=== PATIENT | male | born 1945 | race Caucasian/White ===

== ENCOUNTER 2019-08-07 09:40 | Inpatient (IN) | payer OTHER ==
[~2019-08-07] VITALS: Ht 180.3 cm; Wt 117.0 kg
[~2019-08-07 09:40] MED LIST: ASPI-404 PO; ATOR40TA52 PO; FAM20T PO; METF-371 PO; PIO30T PO
[2019-08-07] MEDS ORDERED: ADENOSINE 6 MG/2 ML INJ IV ONE (10:45)
[2019-08-07 11:06] LABS: Basophils # (auto) 0.1 uL; Eosinophils # (auto) 0.4 uL; Eosinophils % (auto) 4.5 % (0.0-7.0); Hemoglobin 13.7 g/dL (13.5-17.5); Lymphocytes # (auto) 1.7 uL; Lymphocytes % (auto) 18.9 % (10.0-50.0); Mean Corpuscular Hemoglobin 30.2 pg (28.0-32.0); Mean Corpuscular Hgb Conc. 33.5 g/dL (32.0-36.0); Mean Corpuscular Volume 90.3 fL (80.0-100.0); Monocytes # (auto) 0.9 uL; Monocytes % (auto) 10.6 % (0.0-12.0); Neutrophils # (auto) 5.7 uL; Platelet Count (auto) 286 10^3/uL (140-450); Red Blood Cells 4.54 10^6/uL (4.5-5.90); Red Cell Distribution Width 15.4 % (11.8-14.3); White Blood Cell 8.8 10^3/uL (4.4-10.8)
[2019-08-07 11:20] LABS: Alanine Aminotransferase 24 U/L (16-61); Albumin 3.7 g/dL (3.4-5.0); Anion Gap 8 (5-15); Aspartate Aminotransferase 20 U/L (15-37); BUN/Creatinine Ratio 14.1; Blood Urea Nitrogen 19 mg/dL (7-18); Calcium 9.8 mg/dL (8.5-10.1); Carbon Dioxide 25 mmol/L (21-32); Chloride 104 mmol/L (98-107); GFR African American 67 mL/min; GFR Non-African American 55 mL/min; Glucose 187 mg/dL (74-106); Magnesium 1.8 mg/dL (1.6-2.6); Potassium 4.5 mmol/L (3.5-5.1); Sodium 137 mmol/L (136-145)
[2019-08-07 11:25] LABS: Alkaline Phosphatase 109 U/L (45-117); Bilirubin, Total 0.7 mg/dL (0.2-1.0); Total Protein 7.9 g/dL (6.4-8.2)
[2019-08-07] MEDS ORDERED: METO25TA62 PO (13:51)
[2019-08-07] MEDS ORDERED: APIX5TAB PO (13:52)
[2019-08-07] MEDS ORDERED: NITROGLYCERIN 0.4 MG SL TAB SL PRN (14:30)
[2019-08-07] MEDS ORDERED: MORPHINE SULF INJ 2 MG/ML SYRINGE 1ML IV PRN ×2 (14:30)
[2019-08-07] MEDS ORDERED: ONDANSETRON HCL 4 MG/2 ML VIAL IV PRN (14:30)
[2019-08-07] MEDS ORDERED: HYDROcodone-ACET 5/325MG TAB PO PRN (14:30)
[2019-08-07] MEDS ORDERED: ACETAMINOPHEN 325 MG TAB PO PRN (14:30)
[2019-08-07 20:22] LABS: Urine Bacteria NONE SEEN /hpf (None Seen); Urine Blood Negative /uL (Negative); Urine Specific Gravity 1.011 (1.001-1.035); Urine WBC 1 /hpf (0 - 3)
--- NOTE | 2019-08-07 20:32 | NUR ---
Telemetry admit from ER DIANNE ROJAS admitted to Telemetry unit after SBAR received. Patient oriented to VAMSI ANDERSON RN primary RN, unit, room, bed, and unit policies regarding patient care and visiting hours. Patient now on continuous telemetry monitoring, tele box # [id number] and telemetry reading on arrival to unit is A-flutter 108 bpm. Patient weighed by bedscale and encouraged to call if they need something. All questions and concerns addressed, patient verbalized understanding. Patient is A/O x4, no complaints of pain, distress, or SOB, he is on RA, ambulatory. Call light is within reach, side rails up x2, bed is in lowest position.
[2019-08-07] MEDS: ENOXAPARIN SOD 100 MG/1 ML SYRINGE SC SCH (21:38)
[2019-08-07 22:00] VITALS: BP 133/76
[2019-08-07] MEDS: METOPROLOL TARTRATE 25 MG TAB PO SCH (22:00)
--- NOTE | 2019-08-07 23:05 | NUR ---
Wound picture taken of left ankle.
[2019-08-08] MEDS ORDERED: PNEUMOCOCCAL VACC POLYS 25 MCG/0.5 ML VIAL IM ONE (00:15)
[2019-08-08 05:00] VITALS: BP 136/80
[2019-08-08 06:08] LABS: Basophils # (auto) 0.1 uL; Basophils % (auto) 1.1 % (0.0-2.0); Eosinophils # (auto) 0.3 uL; Eosinophils % (auto) 4.6 % (0.0-7.0); Hematocrit 36.9 % (41.0-53.0); Hemoglobin 12.6 g/dL (13.5-17.5); Lymphocytes # (auto) 1.6 uL; Lymphocytes % (auto) 24.1 % (10.0-50.0); Mean Corpuscular Hemoglobin 30.7 pg (28.0-32.0); Mean Corpuscular Hgb Conc. 34.1 g/dL (32.0-36.0); Mean Corpuscular Volume 90.1 fL (80.0-100.0); Monocytes # (auto) 0.8 uL; Monocytes % (auto) 11.3 % (0.0-12.0); Neutrophils # (auto) 3.9 uL; Neutrophils % (auto) 58.9 % (37.0-80.0); Nucleated Red Blood Cells % 0.1 %; Platelet Count (auto) 240 10^3/uL (140-450); Red Cell Distribution Width 15.1 % (11.8-14.3); White Blood Cell 6.6 10^3/uL (4.4-10.8)
[2019-08-08 06:33] LABS: Albumin 3.3 g/dL (3.4-5.0); BUN/Creatinine Ratio 15.2; Calcium 9.4 mg/dL (8.5-10.1); Magnesium 1.9 mg/dL (1.6-2.6); Potassium 4.4 mmol/L (3.5-5.1); Total Protein 6.9 g/dL (6.4-8.2)
[2019-08-08 06:35] LABS: Bilirubin, Total 0.5 mg/dL (0.2-1.0)
[2019-08-08 08:21] VITALS: BP 121/72
[2019-08-08] MEDS: METOPROLOL TARTRATE 25 MG TAB PO SCH (09:13)
[2019-08-08] MEDS: ENOXAPARIN SOD 100 MG/1 ML SYRINGE SC SCH (09:14)
--- NOTE | 2019-08-08 11:00 | NUR ---
WOUND CARE NOTE: IN TO SEE PATIENT AT THIS TIME PER WOUND CARE CONSULT REQUEST. PATIENT ADMITTED TO [facility] WITH SVT, A FLUTTER. CURRENT GUSTAVO SCORE IS 20. PATIENT IS FULLY AMBULATORY. HE HAS HISTORY WITH DVT, VARICOSE VEINS, AND VENOUS STASIS ULCERS. THERE IS HEMOSIDERIN STAIN NOTED TO BILATERAL LOWER EXTREMITIES. HE HAS AN INTACT VENOUS STASIS ULCER TO THE LEFT MEDIAL ANKLE. WOUND IS NOT OPEN OR DRAINING. WOUND IS SCABBED CLOSED, WITH BROWN ESCHAR SCAB. PERIWOUND IS BRIGHT RED. LEFT OPEN TO AIR. PATIENT EDUCATED IN WOUND CARE AND THE NEED FOR PATIENT TO WEAR HIS PRESCRIBED COMPRESSION SOCKS. PATIENT VERBALIZED UNDERSTANDING. SKIN/WOUND CARE PLAN IMPLEMENTED. PATIENT WOULD BENEFIT FROM ELEVATION OF BLE FOR EDEMA CONTROL. PATIENT WILL BE DISCHARGING THIS PM. Addendum: 08/08/19 at 1729 by Pam Scruggs RN Amended: Links added.
--- NOTE | 2019-08-08 12:57 | NUR ---
DR. ZAPATA IN TO SEE PT. PT IN AGREEMENT WITH PLAN OF CARE.
--- NOTE | 2019-08-08 12:58 | NUR ---
MD AWARE OF HEART RHYTHM AND RATE.
[2019-08-08 13:00] VITALS: BP 122/82
--- NOTE | 2019-08-08 16:00 | NUR ---
PAGE LEFT AT DR. RICHMOND'S OFFICE; REGARDING CARDIO CLEARANCE DUE TO DISCHARGE ORDER BY DR. ZAPATA MESSAGE TAKEN BY BUNDLE HELPER WALESKA.
[2019-08-08 16:43] VITALS: BP 115/68
--- NOTE | 2019-08-08 19:40 | NUR ---
PAGED DR. ZAPATA TO CLARIFY DISCHARGE ORDER. PER DR. BENNY RICHMOND WENT TO SEE PATIENT IN THE MORNING AND HAD CLEARED PATIENT FOR DISCHARGE. WILL NOTIFY PATIENT.
--- NOTE | 2019-08-08 20:01 | NUR ---
Discharge instructions given as ordered. Encourage to follow up with PMD as instructed. Reminded patient to call MD office on Sunday, unable to make any appointments at this time because MD offices are already closed, verbalized understanding. All questions and concerns addressed. Patient verbalized understanding. Medication reconciliation form completed and copy given to patient. IV removed with catheter intact, pressure dressing applied, muhammad catheter removed. Telemetry unit returned to ICU, made television host aware. Patient taken to vehicle via wheelchair with all personal belongings, accompanied by staff. No distress noted at time of departure.
[2019-08-08] MEDS ORDERED: APIXABAN 5 MG TAB PO SCH (22:00)
== END 2019-08-08 20:01 | disposition home or self-care (01) | DRG 603 ==
LOC: ER 09:45 → TELE 09:46 → TELE-WESTW 20:30
PROVIDERS: ADMIT Internal Medicine; ATTEND Internal Medicine
DX: L03.116 Cellulitis of left lower limb (principal); I47.1 Supraventricular tachycardia; L97.329 Non-pressure chronic ulcer of left ankle with unspecified severity; I48.92 Unspecified atrial flutter; E11.22 Type 2 diabetes mellitus with diabetic chronic kidney disease; E11.622 Type 2 diabetes mellitus with other skin ulcer; E78.5 Hyperlipidemia, unspecified; I12.9 Hypertensive chronic kidney disease with stage 1 through stage 4 chronic kidney disease, or unspecified chronic kidney disease; S91.002A Unspecified open wound, left ankle, initial encounter; X58.XXXA Exposure to other specified factors, initial encounter; I48.0 Paroxysmal atrial fibrillation; N18.9 Chronic kidney disease, unspecified; Z79.01 Long term (current) use of anticoagulants; Z83.3 Family history of diabetes mellitus; Z87.891 Personal history of nicotine dependence; Y93.89 Activity, other specified; Y92.89 Other specified places as the place of occurrence of the external cause; Y99.8 Other external cause status
CPT/HCPCS: 36415; 71045; 80053; 81001; 83735; 83880; 84484; 85025; 93005; 93306; 93971; 94761; G0378

== ENCOUNTER 2019-08-18 13:37 | Emergency (ER) | payer OTHER ==
[~2019-08-18] VITALS: Ht 180.3 cm; Wt 126.6 kg
[~2019-08-18 13:37] MED LIST changes: +APIX5TAB PO; -ASPI-404 PO; -FAM20T PO; +METO25TA62 PO
[2019-08-18 14:10] LABS: Basophils # (auto) 0.1 uL; Basophils % (auto) 1.1 % (0.0-2.0); Eosinophils # (auto) 0.2 uL; Eosinophils % (auto) 2.3 % (0.0-7.0); Hematocrit 37.4 % (41.0-53.0); Hemoglobin 12.5 g/dL (13.5-17.5); Lymphocytes # (auto) 1.3 uL; Lymphocytes % (auto) 17.4 % (10.0-50.0); Mean Corpuscular Hemoglobin 30.2 pg (28.0-32.0); Mean Corpuscular Hgb Conc. 33.4 g/dL (32.0-36.0); Mean Corpuscular Volume 90.6 fL (80.0-100.0); Monocytes # (auto) 0.8 uL; Monocytes % (auto) 10.8 % (0.0-12.0); Neutrophils % (auto) 68.4 % (37.0-80.0); Nucleated Red Blood Cells % 0.1 %; Platelet Count (auto) 252 10^3/uL (140-450); Red Blood Cells 4.13 10^6/uL (4.5-5.90); Red Cell Distribution Width 15.5 % (11.8-14.3); White Blood Cell 7.3 10^3/uL (4.4-10.8)
[2019-08-18 14:33] LABS: Albumin 3.6 g/dL (3.4-5.0); Anion Gap 6 (5-15); BUN/Creatinine Ratio 8.1; Blood Urea Nitrogen 10 mg/dL (7-18); Calcium 8.6 mg/dL (8.5-10.1); Carbon Dioxide 25 mmol/L (21-32); Chloride 106 mmol/L (98-107); GFR African American 74 mL/min; GFR Non-African American 61 mL/min; Glucose 149 mg/dL (74-106); Potassium 4.2 mmol/L (3.5-5.1); Sodium 137 mmol/L (136-145)
[2019-08-18 14:38] LABS: Alanine Aminotransferase 26 U/L (16-61); Alkaline Phosphatase 97 U/L (45-117); Aspartate Aminotransferase 18 U/L (15-37); Bilirubin, Total 0.7 mg/dL (0.2-1.0); Total Protein 7.3 g/dL (6.4-8.2)
[2019-08-18] MEDS ORDERED: DILTIAZEM HCL 25 MG/5 ML VIAL IV ONE (15:15)
[2019-08-18] MEDS ORDERED: SODIUM CHLORIDE 0.9% 1,000 ML IV ONE (15:15)
[2019-08-18 16:41] LABS: INR 1.01 (0.9-1.15); Partial Thromboplastin Time 28.5 sec (23.64-32.05)
[2019-08-18 18:20] VITALS: BP 121/72
== END 2019-08-18 19:33 | disposition home or self-care (01) ==
LOC: ER 13:40
DX: I48.3 Typical atrial flutter (principal); E11.65 Type 2 diabetes mellitus with hyperglycemia; E66.01 Morbid (severe) obesity due to excess calories; E78.5 Hyperlipidemia, unspecified; Z88.8 Allergy status to other drugs, medicaments and biological substances
CPT/HCPCS: 36415; 71045; 74176; 80053; 83880; 84484; 85025; 85610; 85730; 93005; 96361; 96374; 99284; J7030

== ENCOUNTER 2019-09-30 23:15 | Emergency (ER) | payer OTHER ==
[~2019-09-30] VITALS: Ht 180.3 cm; Wt 120.2 kg
[~2019-09-30 23:15] MED LIST changes: -METO25TA62 PO; +METO25TA93 PO
[2019-10-01 00:24] LABS: Hemoglobin 13.6 g/dL (13.5-17.5); Mean Corpuscular Hemoglobin 30.2 pg (28.0-32.0); Mean Corpuscular Hgb Conc. 33.9 g/dL (32.0-36.0); Mean Corpuscular Volume 89.1 fL (80.0-100.0); Platelet Count (auto) 242 10^3/uL (140-450); Red Blood Cells 4.49 10^6/uL (4.5-5.90); White Blood Cell 7.8 10^3/uL (4.4-10.8)
[2019-10-01 00:26] LABS: Basophils % (manual) 0 (0.0-2.0); Blast Cells 0; Metamyelocytes % 0; Myelocytes % 0; Promyelocytes % 0; Reactive Lymphocytes 0
[2019-10-01 00:29] LABS: Alanine Aminotransferase 27 U/L (16-61); Albumin 3.3 g/dL (3.4-5.0); Anion Gap 12 (5-15); Aspartate Aminotransferase 27 U/L (15-37); BUN/Creatinine Ratio 17.2; Blood Urea Nitrogen 21 mg/dL (7-18); Calcium 9.2 mg/dL (8.5-10.1); Carbon Dioxide 18 mmol/L (21-32); Chloride 104 mmol/L (98-107); GFR African American 75 mL/min; GFR Non-African American 62 mL/min; Glucose 179 mg/dL (74-106); Magnesium 2.3 mg/dL (1.6-2.6); Potassium 3.8 mmol/L (3.5-5.1); Sodium 134 mmol/L (136-145)
[2019-10-01 00:34] LABS: Alkaline Phosphatase 112 U/L (45-117); Bilirubin, Total 0.8 mg/dL (0.2-1.0)
[2019-10-01] MEDS ORDERED: DILTIAZEM HCL 25 MG/5 ML VIAL IV ONE ×2 (01:15→03:45)
[2019-10-01 01:20] LABS: Band Neutrophils % (manual) 12; Eosinophils % (manual) 4 (0-7); Lymphocytes % (manual) 15 (10.0-50.0); Monocytes % (manual) 12 (0-12)
[2019-10-01] MEDS ORDERED: MORPHINE SULF INJ 2 MG/ML SYRINGE 1ML IV ONE (02:15)
[2019-10-01] MEDS ORDERED: METOPROLOL TARTRATE 1MG/1ML-5ML VIAL IV ONE (02:15)
[2019-10-01] MEDS ORDERED: ONDANSETRON HCL 4 MG/2 ML VIAL IV ONE (02:15)
[2019-10-01] MEDS ORDERED: DILTIAZEM HCL 60 MG TAB PO ONE (03:45)
[2019-10-01 03:55] LABS: Urine Bacteria NONE SEEN /hpf (None Seen); Urine Blood Negative /uL (Negative); Urine Specific Gravity 1.029 (1.001-1.035); Urine WBC 2 /hpf (0 - 3)
[2019-10-01 04:02] VITALS: BP 130/94
== END 2019-10-01 05:18 | disposition home or self-care (01) ==
LOC: ER 23:15
DX: I48.20 Chronic atrial fibrillation, unspecified (principal); R07.89 Other chest pain; E11.9 Type 2 diabetes mellitus without complications; E78.5 Hyperlipidemia, unspecified; Z79.899 Other long term (current) drug therapy; Z87.891 Personal history of nicotine dependence; Z88.8 Allergy status to other drugs, medicaments and biological substances
CPT/HCPCS: 36415; 71045; 80053; 81001; 83735; 83880; 84484; 85007; 85027; 92960; 93005; 96374; 96375; 96376; 99285; J2270; J2405